=== PATIENT | female | born 1995 | race Caucasian/White ===

== ENCOUNTER 2017-01-12 00:44 | Emergency (ER) | payer OTHER ==
[~2017-01-12] VITALS: Ht 157.5 cm; Wt 61.4 kg
[~2017-01-12 00:44] MED LIST: LEVAQUIN 5500 MG/TA1 PO
[2017-01-12 01:00] VITALS: BP 113/60; TEMP 98.1
[2017-01-12] MEDS ORDERED: TYLENOL W/COD1 UDTAB PO (03:17)
[2017-01-12] MEDS ORDERED: CEPHALEXIN500 M1 PO (03:17)
[2017-01-12 03:34] VITALS: PULSE 67
== END 2017-01-12 03:34 | disposition home or self-care (01) ==
LOC: COL.ER 00:44
DX: S61.012A Laceration without foreign body of left thumb without damage to nail, initial encounter (principal); W01.110A Fall on same level from slipping, tripping and stumbling with subsequent striking against sharp glass, initial encounter; Y92.009 Unspecified place in unspecified non-institutional (private) residence as the place of occurrence of the external cause